=== PATIENT | female | born 1970 | race Caucasian/White ===

== ENCOUNTER → 2016-08-18 | Outpatient (CLI) | payer OTHER ==
--- NOTE | ~2016-08-18 | CR210 ---
[facility]. [facility] A Service of [facility] & [facility] RADIOLOGY TEXT RESULTS PATIENT: AGATA MOTLEY LOCATION: [facility] : 70 UNIT #: [id number] AGE: [address]: ROSA COLLINS APRN SEX: F ORDER DR: [id number] [address] [address] [id number] O MR#: [id number] Acc #: [id number] NAME: AGATA MOTLEY : 1970 SEX: F STUDY DATE/TIME: 08/18/2016 13:20 UNIT: [facility] ROOM: STUDY DESCRIPTION: CR Ribs Uni 2 View W PA Ch Lt Attending Physician: Rosa Collins Aprn Referring Physician: Rosa Collins Aprn Ordering Physician: Rosa Collins Aprn Primary Care Physician: January Maloney A.P.R.N. MEDICAL IMAGING REPORT This report is preliminary unless electronic signature is present. EXAM Chest and left ribs 4 views, 08/18/2016 HISTORY Lower left rib pain for 2 years. No known injury with shortness of breath. FINDINGS The heart is normal in size. The lungs are clear. There are no pleural effusions. Images of the left ribs demonstrate old healed fracture deformity involving the posterior lateral left sixth rib. IMPRESSION Old healed fracture involving the posterior lateral aspect of the left sixth rib. No acute fracture is seen. No pneumothorax. Dictated by... Robinson Brody M.D. THIS IS AN ELECTRONICALLY VERIFIED REPORT Robinson Brody M.D. at 08/21/2016 8:02 AM JONATHAN/eder TD: 08/19/2016 12:19 JOB #: [id number] MEDICAL IMAGING REPORT Page 1 of 1
== END | disposition home or self-care (01) ==
LOC: SRAD 13:08
DX: R07.81 Pleurodynia (principal); Z87.81 Personal history of (healed) traumatic fracture
CPT/HCPCS: 71100